=== PATIENT | female | born 1985 | race Caucasian/White ===

== ENCOUNTER 2023-10-10 10:40 | Emergency (ER) | payer BC ==
[~2023-10-10] VITALS: Ht 170.2 cm; Wt 84.5 kg
[2023-10-10 10:46] VITALS: TEMP 98.1
[2023-10-10] MEDS ORDERED: NS 1,000 ML IV ONE ×2 (11:00→13:00)
[2023-10-10] MEDS ORDERED: Ondansetron 4 MG/2 ML VIAL IV ONE (11:00)
[2023-10-10] MEDS ORDERED: Ketorolac 30 MG/ML VIAL IV ONE (11:15)
[2023-10-10 11:23] LABS: HEMATOCRIT 44.5 % (37.0-47.0); HEMOGLOBIN 15.8 g/dl (12.5-16.0); MEAN CELL VOLUME 90 fl (80.0-100.0); MEAN CORPUSCULAR HEMOGLOBIN 32 pg (27-31); MEAN CORPUSCULAR HGB CONC 36 g/dl (33.0-37.0); MEAN PLATELET VOLUME 9.4 fl (7.4-10.4); PLATELET COUNT 380 K/mm3 (130-400); RED BLOOD COUNT 4.94 M/mm3 (4.10-5.30); REDCELL DISTRIBUTION WIDTH-CV 11.5 % (11.5-14.5)
[2023-10-10 11:46] LABS: BILIRUBIN,TOTAL 0.7 mg/dL (0.2-1.2); C-REACTIVE PROTEIN 1.58 mg/dL (0.00-0.50); CALCIUM 9.4 mg/dL (8.4-10.2); CREATININE, serum 0.87 mg/dL (0.57-1.11); TOTAL PROTEIN 7.1 g/dl (6.2-8.1)
[2023-10-10] MEDS ORDERED: Iohexol 300 - 100 ML VIAL IV ONE (12:05)
[2023-10-10] MEDS ORDERED: NS 100 ML IV ONE (12:06)
[2023-10-10 12:20] LABS: BAND 1 % (0-10); EOSINOPHIL 24 % (0-4); LYMPHOCYTE 20 % (20.0-51.0); NEUTROPHILS 52 % (42.0-75.2); PLATELET ESTIMATE NORMAL (NORMAL)
[2023-10-10 16:20] VITALS: BP 130/76; PULSE 79
== END 2023-10-10 16:20 | disposition home or self-care (01) ==
LOC: COL.ER 10:40
PROVIDERS: Emergency Medicine
DX: R19.7 Diarrhea, unspecified (principal); E86.0 Dehydration
CPT/HCPCS: J1885; J2405; J7030; Q9967